=== PATIENT | male | born 1980 | race Caucasian/White ===

== ENCOUNTER → 2021-01-02 | Outpatient (CLI) | payer BC, OTHER ==
[~2021-01-02] MED LIST: MELOXICAM15 MG PO; VITAMIN B-121000 MC2 SUBLING; VITAMIN D3250 MC1 PO; ZYRTEC10 M4 PO
== END ==
LOC: LAB 08:55
PROVIDERS: ATTEND Orthopaedic Surgery Sports Medicine
DX: Z01.812 Encounter for preprocedural laboratory examination (principal); Z20.822 Contact with and (suspected) exposure to COVID-19

== ENCOUNTER 2021-01-06 06:03 | Day surgery (SDC) | payer BC, OTHER ==
[~2021-01-06] VITALS: Ht 190.5 cm; Wt 103.0 kg
--- NOTE | ~2021-01-06 | O ---
[facility] [place] [address] OPERATIVE REPORT Name: CRISTAL RING Room #: DEP [facility]..#: [id number] Admission: 01/06/21 Attend Phys: Darci Trevizo MD Discharge: 01/06/21 Date of : 84 Report #: [id number] THIS REPORT FOR: cc: Padilla Burnham MD, Lawrence D. MD McCabe,Darci Menendez MD ~ DATE OF SERVICE: 01/06/2021 SERVICE: Orthopedics. FACILITY: [facility]. SURGEON: Darci Trevizo MD AUDIT CLERKS SUPERVISOR: Deisi Eli. INDICATION FOR AUDIT CLERKS SUPERVISOR: Extremity positioning, arthroscope management, assistance with the grafting. PREOPERATIVE DIAGNOSES: 1. Recurrent right knee effusions. 2. Right knee pain. 3. Right knee lateral femoral condyle articular cartilage lesion. 4. Right knee synovitis. POSTOPERATIVE DIAGNOSES: 1. Recurrent right knee effusions. 2. Right knee pain. 3. Right knee lateral femoral condyle articular cartilage lesion. 4. Right knee synovitis. 5. 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 6. Right knee lateral meniscus root tear. PROCEDURES: 1. Right knee arthroscopic autograft osteoarticular transplant to the right lateral femoral condyle. 2. Extensive arthroscopic synovectomy (3 compartments). 3. Right knee arthroscopic partial lateral meniscectomy. 4. Right knee medial plica excision. 5. Right knee arthroscopic chondroplasty of patellofemoral joint. COMPLICATIONS: None. DRAINS: None. [facility] [place] [address] OPERATIVE REPORT Name: CRISTAL RING Room #: DEP [facility] M.R.#: [id number] Admission: 01/06/21 Attend Phys: Darci Trevizo MD Discharge: 01/06/21 Date of : 84 Report #: [id number] SPECIMENS: Synovial tissue sent for biopsy. ANESTHESIA: General. FINDINGS: 1. Lateral femoral condyle lesion measuring approximately 8 x 20 mm, treated with 10 mm autograft OATS plug x 2. 2. Intact medial compartment. 3. Early osteophytes noted on the medial aspect of the trochlea and lateral aspect of the intercondylar notch. 4. Grade 2 and 3 chondromalacia patellofemoral joint, treated with chondroplasty. No full-thickness lesions. 5. Partial-thickness fraying of the lateral meniscus posterior root treated with partial lateral meniscectomy. 6. Thick medial plica treated with resection with the shaver. 7. Extensive frondular synovitis treated with extensive synovectomy. HISTORY: The patient is a 40-year-old young man with a history of very large recurrent effusions. He has been treated for these extensively with conservative measures including repeated aspirations, corticosteroid injections, oral medicines, compression wrapping, physical therapy modalities and activity modification. He continued to have effusions despite these treatments. He has had a history of a previous diagnostic arthroscopy several years ago, but because of his continued symptoms and failure to improve, we obtained repeat MRI and discussed treatment. He was noted to have articular cartilage lesion of the lateral femoral condyle, we made plans for arthroscopy with synovectomy and osteoarticular autograft transplant treatment of the osteochondral lesion on the lateral femoral condyle. Risks, benefits, alternatives, and indication of surgery discussed with him in detail. Risks include but not limited to pain, bleeding, infection, injury nerves or blood vessels, persistent pain despite surgical intervention, failure of any repairs, reconstructions, progression of preexisting chondral injury, stiffness, need for further surgery as well as complications related to anesthesia. Despite the risks, he wished to proceed. PROCEDURE IN DETAIL: After right lower extremity was correctly identified in the preoperative holding as operative extremity, the patient underwent regional nerve block. He was then taken to the operating room where general anesthesia was induced without complication. He was padded appropriately. Prophylactic antibiotics were administered at appropriate time. Tourniquet was applied to right leg. Right lower extremity was then prepped and draped in standard sterile fashion. Timeout procedure performed. Esmarch was used. Tourniquet inflated to 250 mmHg. Standard anterolateral viewing portal was established followed by anterior by anteromedial working portal. Diagnostic arthroscopy revealed the above findings. [address] [address] OPERATIVE REPORT Name: CRISTAL RING Room #: DEP [facility] M.R.#: [id number] Admission: 01/06/21 Attend Phys: Darci Trevizo MD Discharge: 01/06/21 Date of : 84 Report #: [id number] There was extensive synovitis all throughout the knee and so the shaver was used very deliberately and thoroughly to perform a synovectomy working in the suprapatellar pouch and medial gutter, the lateral gutter and then across the anterior compartment and along the intercondylar notch too. A biter was used to obtain a biopsy of the synovial tissue for pathologic assessment. The synovium was inflamed and frondular with the underlying capsule was otherwise healthy. There was a very thick scar like appearing medial plica and this was transected with the 11-blade and then resected with the biter and the shaver to stable margins. I then continued working across the front of the knee with synovectomy. The ACL and the PCL were intact. The medial compartment was healthy in appearance, although there was an osteophyte off the margin of the medial femoral condyle as well as at the medial portion of the proximal trochlea. There was a small osteophyte in the intercondylar notch as well. The leg was then placed in the [id number] position and the lateral compartment was evaluated. The lateral meniscus had a partial-thickness tear at the posterior root attachment. This was treated with partial lateral meniscectomy with biter and a shaver. I then took the knee into further flexion and could then visualize the articular cartilage lesion of the lateral femoral condyle. The primary lesion was full thickness, grade 4 and measured approximately 6 mm x 10 mm, this was next to another lesion more laterally that had fissuring and softening of the cartilage and did not have stable cartilage on probing. I felt that the most appropriate treatment would be to address both of these and so we made plans to proceed to plug both of the lateral femoral condyle. A second medial portal was made with the knee in a partially flexed position. A passport cannula was placed and then two 10 mm plugs were taken off of the proximal medial margin of the trochlea. He has a large patella with a large lateral facet that articulate on essentially the entire lateral trochlea, so I did not want to take a graft from the lateral aspect of the trochlea. Due to the disarticulation with his vertical medial facet, I made a medial trochlea proximally, a very reasonable donor location, we harvested these two graft plugs and then used allograft dowels to backfill and used the shaver to a smooth coplanar with the articular surface and medial osteophyte was then resected with the shaver as well. The attention was turned towards the graft placement. We used the harvester to remove the recipient plug. The first one more medially and placed the graft and was appropriately sized and contoured for the position of the condyle and then the similar technique with the more medial lesion, it was more centrally located on the lateral femoral condyle and the second graft was then placed in position. These were essentially side by side ____ type graft construct. A shaver was then used to gently ensure that the grafts were all co-planed with articular surface, a probe and tamp were utilized as well in appropriate fashion and then final debridement was completed and the knee was placed into extension. A chondroplasty was performed of the patellofemoral joint. The arthroscopic effusion was drained, instruments were removed. Portal sites were closed. Sterile dressing was applied followed by compression [address] [address] OPERATIVE REPORT Name: CRISTAL RING [facility]#: [id number] Admission: 01/06/21 Attend Phys: Darci Trevizo MD Discharge: 01/06/21 Date of : 84 Report #: [id number] stocking and a knee immobilizer. He will be allowed weightbearing as tolerated with full range of motion. His articulation of the tibia on the OATS plugs is in a flexed position, so ambulation with minimal loading strain on the plugs. By: [id number] Darci Trevizo MD /jonathon
[2021-01-06 09:16] VITALS: BP 142/96
[2021-01-06 10:27] VITALS: BP 142/96
--- NOTE | 2021-01-08 19:07 | PATH ---
[facility] [address] [place] [address] PATHOLOGY RPT PROCEDURE Name: MARK RING Room #: DEP [facility] M.R.#: [id number] Admission: 01/06/21 Date of : 84 Discharge: 01/06/21 Report #: [id number] Path Case #: [id number] [facility] Accession Number: [id number] . 01 Material submitted: . knee - RIGHT KNEE SYNOVIUM. Modifiers: right, SYNOVIUM . 01 Clinical history: . OSTEOCHONDRAL ALLOGRAFT ARTHROSCOPY KNEE SYNOVECTOMY MENISCECTOMY . 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 (IUV:chapo; 01/08/2021) MBR 01/08/2021 1652 Local . 02 Comment: Examination of the right knee synovium biopsy tissue shows reactive synovial hyperplasia overlying abundant dense chronic inflammatory infiltrate comprised of lymphocytes as well as numerous plasma cells. The predominance of lymphoid aggregates raises concern for autoimmune etiology. Please correlate clinically. (IUV:blender operator; 01/08/2021) . 02 Electronically signed: . Marilou Garza MD, Pathologist NPI- [id number] . 01 Gross description: . The specimen is received in formalin, labeled "Mark Ring right knee synovium" and consist of a 1.2 x 1 x 0.2 cm aggregate of soft bland tissue entirely submitted in A1.([facility]; 01/07/2021) GONSALO/GONSALO 01/07/2021 1521 Local . 02 Pathologist provided ICD-10: M65.861 . 02 CPT . 267414 Specimen Comment: A courtesy copy of this report has been sent to [phone] Specimen Comment: [phone] Specimen Comment: Report sent to / DR PALOMO [address] [address] PATHOLOGY RPT PROCEDURE Name: MARK RING Room #: DEP [facility] M.R.#: [id number] Admission: 01/06/21 Date of : 84 Discharge: 01/06/21 Report #: [id number] Path Case #: [id number] [facility]formed at: [facility] [place] [address], [place] [id number] MD Denilson Fleming MD Phone: [phone] Performed at: [address] [id number] MD Marilou Garza MD Phone: [phone]
== END 2021-01-06 11:15 | disposition home or self-care (01) ==
LOC: OR 06:03 → TBA 06:03 → OR 10:00
PROVIDERS: ATTEND Orthopaedic Surgery Sports Medicine
DX: M25.561 Pain in right knee (principal); M25.461 Effusion, right knee; S83.281A Other tear of lateral meniscus, current injury, right knee, initial encounter; M94.261 Chondromalacia, right knee; M65.861 Other synovitis and tenosynovitis, right lower leg; M67.51 Plica syndrome, right knee; K21.9 Gastro-esophageal reflux disease without esophagitis; Z98.890 Other specified postprocedural states; Z87.891 Personal history of nicotine dependence; Z79.899 Other long term (current) drug therapy; X58.XXXA Exposure to other specified factors, initial encounter; Y93.89 Activity, other specified; Y92.89 Other specified places as the place of occurrence of the external cause; Y99.8 Other external cause status
CPT/HCPCS: 50010; 50101; 50405; 50951; 50954; 51320; 52001; 52282; 56527; 57103; 57180; 58628; 58629; 58630; 58631; 62110; 62900; 64043; 65060; 70005